=== PATIENT | female | born 1960 | race Caucasian/White ===

== ENCOUNTER 2018-05-18 20:25 | Emergency (ER) | payer OTHER, SELFPAY ==
[2018-05-18 20:58] LABS: Bilirubin Negative (Negative); Blood, Urine Moderate (Negative); Clarity CLOUDY (Clear); Glucose, Urine (Dipstick) Negative (Negative); Leukocyte Moderate (Negative); Nitrite Positive (Negative); Protein, Urine (Dipstick) Trace mg/dL (Neg-Trace); Urobilinogen 0.2 mg/dL (0.2-1.0)
[2018-05-18 21:00] LABS: Bacteria/HPF 4+ HPF (None Seen); Hyaline Casts/LPF 7-10 HYALINE CAST LPF (0-3 Hyaline); Pathc Cast-AUWi Flag 0.81 (0-2.49); Squamous Epithelial None Seen HPF (0-3)
== END 2018-05-18 21:20 | disposition home or self-care (01) ==
LOC: ERS 20:25
DX: N39.0 Urinary tract infection, site not specified (principal); F41.9 Anxiety disorder, unspecified; Z87.891 Personal history of nicotine dependence
CPT/HCPCS: 81003; 81015; 87077; 87086; 87186; 99283

== ENCOUNTER 2019-12-23 16:28 | Emergency (ER) | payer OTHER, SELFPAY ==
[2019-12-24 10:51] LABS: SARS-CoV-2 MS2 Positive; SARS-CoV-2 N Gene Positive; SARS-CoV-2 S Gene Positive; SARS-CoV-2 by NAA DETECTED (NotDetected); SARS-CoV-2 orf1ab Positive
== END 2019-12-23 16:47 | disposition home or self-care (01) ==
LOC: ERS 16:28
DX: U07.1 COVID-19 (principal); F41.9 Anxiety disorder, unspecified; Z87.891 Personal history of nicotine dependence
CPT/HCPCS: 87635; 99283; U0003